=== PATIENT | female | born 1980 | race Caucasian/White ===

== ENCOUNTER 2023-01-28 18:49 | Emergency (ER) | payer BC ==
[2023-01-28 18:57] VITALS: BMI 26.5
[2023-01-28 19:10] VITALS: BP 109/64; PULSE 89; RESP 16; TEMP 98
[2023-01-28 20:47] LABS: HEMOGLOBIN 13.1 G/dL (10.7-15.3); MCH 29.8 pg (25.7-33.7); MCHC 32.8 g/dl (32.0-36.0); MEAN CELL VOLUME 91.1 fl (80-96); MEAN PLT VOLUME 8.1 fl (7.5-11.1); PLATELET COUNT 229.5 10^3/uL (134-434); RBC 4.39 10^6/uL (3.60-5.2); RDW 13.3 % (11.6-15.6); WHITE BLOOD COUNT 9.6 10^3/uL (4.0-10.8)
[2023-01-28 21:13] LABS: PLATELET ESTIMATE ADEQUATE
[2023-01-28 21:27] LABS: POTASSIUM 3.7 mmol/L (3.5-5.1)
[2023-01-28 21:29] LABS: ALBUMIN 3.9 g/dl (3.4-5.0); CALCIUM 8.6 mg/dL (8.5-10.1)
[2023-01-28 21:30] LABS: BLOOD UREA NITROGEN 20.6 mg/dL (7-18)
[2023-01-28 21:32] LABS: CREATININE 0.6 mg/dL (0.55-1.3)
[2023-01-28 21:34] LABS: BILIRUBIN,TOTAL 0.2 mg/dL (0.2-1); TOT PROT 7.4 g/dl (6.4-8.2)
== END 2023-01-28 22:02 | disposition home or self-care (01) ==
LOC: FER 18:49
DX: R21 Rash and other nonspecific skin eruption (principal)
CPT/HCPCS: 36415; 80053; 85027; 85651; 86140; 99283-25